=== PATIENT | male | born 1990 | race Caucasian/White ===

== ENCOUNTER 2023-04-07 13:13 | Emergency (ER) | payer BC, SELFPAY ==
[2023-04-07 13:15] VITALS: BP 121/78; PULSE 68; RESP 16; TEMP 36.7; O2SAT 99; BMI 23.1
--- NOTE | 2023-04-07 13:20 | XR_ITS ---
PROCEDURE INFORMATION: Exam: XR Left Hand Exam date and time: 04/07/2023 1:20 PM Age: 32 years old Clinical indication: Injury or trauma; Other: Piece of sheet metal lacerated left 5th finger. Bleeding/hemorrhage and laceration; Left little finger; Patient HX: Laceration of left fifth finger (pinky) by a sheet of tin. ; Additional info: Left little finger injury TECHNIQUE: Imaging protocol: Radiologic exam of the left hand. Views: 3 or more views. COMPARISON: No relevant prior studies available. FINDINGS: Bones/joints: Subtle region of increased density immediately adjacent to the dorsal aspect of the base of the 5th distal phalanx. This may reflect retained foreign body or related to postop operative change. Soft tissues: Soft tissue swelling at the level of the 5th PIP joint. No evidence of subcutaneous air. IMPRESSION: Subtle region of increased density immediately adjacent to the dorsal aspect of the base of the 5th distal phalanx. This may reflect retained foreign body or related to postop operative change.
--- NOTE | 2023-04-07 13:37 | HMH.EDGENADL ---
Discharge Plan Disposition Patient Disposition: Home, Self-Care Prescriptions Prescriptions: New cephalexin 500 mg capsule 1,000 mg PO BID 5 Days Qty: 20 0RF Referrals Follow up/Referrals: Suresh Bañuelos DO [Staff Physician] - See instructions Activity Restrictions/Add. Instructions Additional Instructions/Restrictions: Call your family doctor to establish care for this visit to the emergency department and schedule follow-up within 48 hours to ensure improvement. If you have any worsening of your condition or any other concerning signs or symptoms, return to the emergency department or your primary care doctor for further evaluation. Antibiotic twice daily for 5 days. Take Tylenol 1000 mg every 6 hours (4 times daily) and ibuprofen 400 mg every 6 hours (4 times daily) as needed with food and water to prevent GI upset and kidney damage. Call Dr. Bañuelos for follow-up in about a week or 2. Clinical Impressions Clinical Impression: Open fracture, Injury of left little finger Instructions Patient Instructions: DI for Laceration Repair Discharge ED Provider: Joe Gilbert General Adult HPI General Chief complaint: Wound/Laceration Stated complaint: [id number] left pinkie finger,home accident Time Seen by Provider: 04/07/23 13:15 Mode of Arrival: Ambulatory Source of Information: Patient Limitations: No Limitations Description of Symptoms (Recalled from ER Triage Doc. by RN): Presents to ED with a laceration to the left pinky finger after cutting it on metal. Unknown of last tetanus vaccine. Bleeding controlled [employer]. Denies taking any meds [employer]. History of Present Illness HPI narrative: 32-year-old male no relevant medical history unknown last tetanus presenting with left finger injury. Patient cut on metal just prior to arrival. Still able to flex and extend, no other injury was sustained. Related Data Previous Rx's Medication Instructions Recorded cephalexin 500 mg capsule 1,000 mg PO BID 5 days #20 caps 04/07/23 Allergies Allergy/AdvReac Type Severity Reaction Status Date / Time No Known Allergies Allergy Verified 04/07/23 13:24 [facility] Disclaimer: The information contained in this section may have been updated after the patient was seen, as this information can be updated by other users. Social History Smoking Status: Never smoker alcohol intake: never current occupational status: employed Travel in the last 8 weeks: None ROS Obtained: Yes All systems reviewed & no additional complaints except as documented Physical Exam General General appearance: alert and in no apparent distress Respiratory Respiratory exam: Absent respiratory distress Cardiovascular Cardiovascular exam: Present regular rate and normal rhythm Extremities Exam Extremities exam: Present other (Multiple subcentimeter lacerations left little finger. Proximal, mid, and distal phalanx. No evidence of nail involvement.) Neurological Exam Neurological exam: Present alert and oriented X3; Absent motor sensory deficit Medical Decision Making Medical Records Medical records reviewed: Yes I reviewed the patient's medical records. Francis Inquiry Pt receiving controlled substance: No Francis was queried for this patient: No Vital Signs: 04/07/23 13:15 Temperature 98.1 F Temperature Source Oral Pulse Rate [Right] 68 Respiratory Rate 16 Blood Pressure [Left Arm] 121/78 Blood Pressure Mean [Left Arm] 92 Blood Pressure Source [Left Arm] Automatic Cuff Blood Pressure Position [Left Arm] Sitting 02 Sat by Pulse Oximetry 99 Oxygen Delivery Method Room Air Orders (Tests/Meds): ED MEDICATIONS Generic Name Dose Route Start Last Admin Trade Name Freq PRN Reason Stop Dose Admin Cefazolin Sodium 2 gm/ Sodium 100 mls @ 200 mls/hr 04/07/23 14:41 04/07/23 14:55 Chloride IV 04/07/23 15:10 200 mls/hr ONCE ONE Administration Discontinued Medications Generic Name Dose Route Start Last Ad
--- NOTE | 2023-04-07 14:35 | PC.NURSE ---
Dr. Gilbert at for procedure.
[2023-04-07 15:17] VITALS: BP 131/77; PULSE 81; RESP 20; TEMP 36.8; O2SAT 98
== END 2023-04-07 15:19 | disposition home or self-care (01) ==
PROVIDERS: Emergency Provider Emergency Medicine
DX: S62.607B Fracture of unspecified phalanx of left little finger, initial encounter for open fracture (principal); W26.8XXA Contact with other sharp object(s), not elsewhere classified, initial encounter
CPT/HCPCS: 12001; 73130; 90715; 96365; 96372; 99284; J0690

== ENCOUNTER 2024-01-24 11:30 | Outpatient (CLI) | payer BC, SELFPAY ==
[2024-01-24 18:42] LABS: Basophils % 0.8 % (0.1-2.0); Eosinophils # 0.1 K/mm3 (0.0-0.4); Eosinophils % 2.8 % (0.1-12.0); Hematocrit 49.7 % (42.0-52.0); Hemoglobin 15.9 g/dL (14.1-18.0); Lymphocytes # 2.2 K/mm3 (0.7-4.5); Lymphocytes % 46.8 % (10-50); Mean Corpuscular Hemoglobin 31.8 pg (27.0-31.2); Mean Corpuscular Volume 99.3 fl (80-94); Mean Platelet Volume 10.2 fl (7.4-10.4); Monocytes # 0.3 K/mm3 (0.1-1.0); Monocytes % 6.8 % (1.7-9.3); Neutrophils % 42.8 % (37.0-80.0); Platelet Count 187 K/mm3 (142-424); Red Blood Count 5.01 M/mm3 (4.60-6.20); Red Cell Distribution Width 13.4 % (11.5-17.5); White Blood Count 4.7 K/mm3 (4.8-10.8)
[2024-01-24 19:12] LABS: Hemoglobin A1C 5.4 % (4.0-6.0)
[2024-01-24 19:34] LABS: Alanine Aminotransferase 14 U/L (12-78); Albumin Level 4.3 g/dl (3.5-5.0); Albumin/Globulin Ratio 1.5 (1.1-1.8); Alkaline Phosphatase 56 U/L (38-126); Amylase 86 U/L (30-110); Anion Gap 8.4 mEq/L (5-15); Aspartate Amino Transferase 24 U/L (17-59); Bilirubin,Total 1.1 mg/dl (0.2-1.3); Blood Urea Nitrogen 18 mg/dl (9-20); Calcium 9.6 mg/dl (8.4-10.2); Carbon Dioxide 28 mmol/L (22.0-30.0); Chloride 107 mmol/L (98-107); Chol/HDL Ratio 3.9 (1-3.5); Cholesterol 173 mg/dl (140-200); Estimated Glomerular Filt Rate 97 ml/min (>60); GFR (African American) 118 ML/MIN (>60); Globulin 2.9 g/dL (1.3-3.2); Glucose 94 mg/dl (74-100); HDL Cholesterol 44 mg/dl (40-60); Lipase 99 U/L (23-300); Potassium 4.4 mmoL/L (3.5-5.1); Sodium 139 mmol/L (136-145); Total Protein,Serum 7.2 g/dl (6.3-8.2); Triglycerides 70 mg/dl (30-150); VLDL Cholesterol 14 mg/dL (0-40)
[2024-01-24 19:45] LABS: Direct LDL Cholesterol 105.29 mg/dL (100-129)
[2024-01-24 19:53] LABS: 25-OH Vitamin D, Total 36.6 ng/mL (30-100)
[2024-01-24 20:07] LABS: Prostate Specific Ag Screen 0.3 ng/ml (0.0-4.0)
== END 2024-01-24 23:59 | disposition home or self-care (01) ==
LOC: LAB.DROPOF 01-25 09:25
PROVIDERS: PCP Family Medicine; Visit Provider Family Medicine
DX: K92.1 Melena (principal); N40.0 Benign prostatic hyperplasia without lower urinary tract symptoms; R14.0 Abdominal distension (gaseous); R10.9 Unspecified abdominal pain
CPT/HCPCS: 80050; 80053; 80061; 82150; 82306; 83036; 83690; 84443; 85025; G0103

== ENCOUNTER 2024-03-26 07:08 | Outpatient (CLI) | payer BC, SELFPAY ==
--- NOTE | 2024-03-26 07:09 | CT_ITS ---
FINAL REPORT TECHNIQUE: Axial CT images of the abdomen and pelvis were obtained before and after the administration of IV contrast. Oral contrast was administered.This study was performed with techniques to keep radiation doses as low as reasonably achievable (ALARA). Individualized dose reduction techniques using automated exposure control or adjustment of mA and/or kV according to the patient's size were employed. CLINICAL HISTORY: abdominal pain, doris, rectal bleeding COMPARISON: None FINDINGS: Abdomen: The lung bases are clear. The heart is normal in size. The liver has an unremarkable appearance, without evidence of mass or biliary duct dilatation. . The spleen is unremarkable. No adrenal masses present. The pancreas has an unremarkable appearance. The kidneys enhance normally. The aorta is normal in caliber. There is no free fluid or adenopathy. No mass or abnormal fluid collection is seen. Precontrast images demonstrate no evidence of nephrolithiasis. Pelvis: The appendix is normal in appearance. The urinary bladder is unremarkable. There is mild wall thickening in the sigmoid colon and rectum, that may represent colitis. Clips are present in the scrotum, likely from a prior vasectomy. There is no evidence of mass or adenopathy. There is no evidence of bowel obstruction. IMPRESSION: Mild wall thickening in the sigmoid colon and rectum, that may represent colitis. Reviewed, Interpreted and Dictated by Isaias Weber III, MD Transcribed by Jasmina Menendez Authenticated and . [facility]
[2024-03-26] MEDS: SODIUM CHLORIDE 0.9% 10ML SYR (RAD ONLY) 10 ML IV (07:38)
[2024-03-26] MEDS: IOPAMIDOL-370 (76%);100ML BOTTLE 75 ML IV (07:38)
[2024-03-26] MEDS: BARIUM SULFATE(READI-CAT2);450ML BOTTLE 450 ML PO (07:38)
== END 2024-03-26 23:59 | disposition home or self-care (01) ==
LOC: RAD 07:09
PROVIDERS: PCP Family Medicine; Visit Provider Family Medicine
DX: R14.0 Abdominal distension (gaseous) (principal); K62.5 Hemorrhage of anus and rectum; R10.9 Unspecified abdominal pain; K64.9 Unspecified hemorrhoids; K60.2 Anal fissure, unspecified
CPT/HCPCS: 74178; Q9967

== ENCOUNTER 2024-04-06 08:21 | Outpatient (CLI) | payer BC, SELFPAY ==
--- NOTE | 2024-04-06 08:22 | US_ITS ---
PROCEDURE INFORMATION: Exam: US Abdomen, Limited; Right Upper Quadrant Exam date and time: 04/06/2024 8:26 AM Age: 33 years old Clinical indication: Abdominal pain; Additional info: Abd pain TECHNIQUE: Imaging protocol: Real time ultrasound of the abdomen with image documentation. Limited exam focused on the right upper quadrant. COMPARISON: CT ABDOMEN PELVIS WO/W CON 03/26/2024 7:25 AM FINDINGS: Liver: Hepatic parenchyma grossly unremarkable. No hepatic mass. Gallbladder: Gallbladder notable for minimal dependent gallbladder sludge. No intraluminal calculus. Gallbladder wall thickness 2.3 mm, which is within normal limits. Biliary ducts: Common bile duct measures 2.2 mm in diameter, which is within normal range. No intraluminal filling defect identified. Pancreas: Pancreatic head and body unremarkable as visualized. Right kidney: Right kidney measures 11.7 x 3.9 x 7.1 cm for an estimated volume of 168 mL. Corticomedullary thickness 11 mm. No hydronephrosis or renal mass. No renal calculi visualized. Aorta: Aorta nonaneurysmal. IMPRESSION: Minimal dependent gallbladder sludge.
== END 2024-04-06 23:59 | disposition home or self-care (01) ==
LOC: RAD 08:22
PROVIDERS: PCP Family Medicine; Visit Provider Family Medicine
DX: R14.0 Abdominal distension (gaseous) (principal); R10.9 Unspecified abdominal pain; K90.49 Malabsorption due to intolerance, not elsewhere classified
CPT/HCPCS: 76705

== ENCOUNTER 2024-04-25 09:05 | Outpatient (CLI) | payer BC, SELFPAY ==
[2024-04-25 09:12] LABS: Adenovirus F 40/41, stool Not Detected (NotDetected); Astrovirus Not Detected (NotDetected); Campylobacter Not Detected (NotDetected); Clostridium Difficile A/B, PCR Not Detected (NotDetected); Cryptosporidium Not Detected (NotDetected); Cyclospora Cayetanesis Not Detected (NotDetected); Entamoeba histolytica Not Detected (NotDetected); Enteroaggregative E coli Not Detected (NotDetected); Enteropathogenic E coli Not Detected (NotDetected); Enterotoxigenic E coli Not Detected (NotDetected); Giardia lamblia Not Detected (NotDetected); Norovirus Not Detected (NotDetected); Plesimonas Shigalloides, PCR Not Detected (NotDetected); Rotavirus A Not Detected (NotDetected); Salmonella, PCR Not Detected (NotDetected); Sapovirus Not Detected (NotDetected); Shiga-like toxin E coli Not Detected (NotDetected); Shigella Enterovasive E coli Not Detected (NotDetected); Vibrio Cholerae Not Detected (NotDetected); Vibrio, PCR Not Detected (NotDetected); Yersinia Entercolitica, PCR Not Detected (NotDetected)
[2024-04-29 07:54] LABS: Calprotectin, Fecal 15 ug/g (0-120)
== END 2024-04-25 23:59 | disposition home or self-care (01) ==
LOC: LAB.DROPOF 09:06
PROVIDERS: Nurse Practitioner Family; PCP Family Medicine; Visit Provider Family Medicine
DX: K52.9 Noninfective gastroenteritis and colitis, unspecified (principal); R10.84 Generalized abdominal pain; K62.5 Hemorrhage of anus and rectum
CPT/HCPCS: 83993; 87506

== ENCOUNTER 2024-07-20 11:26 | Outpatient (CLI) | payer SELFPAY ==
[2024-07-20 18:07] LABS: Coronavirus 19, PCR Not Detected (NotDetected); Influenza B, PCR Not Detected (NotDetected)
[2024-07-21 03:52] LABS: Influenza A, PCR Detected (NotDetected)
== END 2024-07-20 23:59 | disposition home or self-care (01) ==
LOC: LAB.DROPOF 07-23 11:32
PROVIDERS: PCP Family Medicine; Visit Provider Family Medicine
DX: R05.9 Cough, unspecified (principal)
CPT/HCPCS: 87636